=== PATIENT | female | born 2000 | race Caucasian/White ===

== ENCOUNTER 2023-01-24 18:02 | Emergency (ER) | payer BC ==
[~2023-01-24] VITALS: Ht 165.1 cm; Wt 104.3 kg
[2023-01-24 18:02] VITALS: BP_SYST 123; PULSE 119; RESP 19; TEMP 98; O2SAT 97
[2023-01-24] MEDS ORDERED: ALBUTEROL SULFATE 0.083% 2.5 MG/3 ML VIAL.NEB INH ONE ×3 (18:11→18:30)
[2023-01-24] MEDS ORDERED: IPRATROPIUM BROM 0.5 MG/2.5 ML VIAL.NEB (ATROVENT) INH ONE (18:30)
[2023-01-24] MEDS ORDERED: predniSONE 20 MG TABLET PO ONE (18:30)
[2023-01-24 19:21] LABS: COVID19 ANTIGEN SOFIA FIA NEGATIVE (NEGATIVE)
[2023-01-24 19:23] LABS: INFLUENZA TYPE A Negative (NEGATIVE); INFLUENZA TYPE B NEGATIVE (NEGATIVE)
[2023-01-24] MEDS ORDERED: PRED20TA PO (19:28)
[2023-01-24 19:39] VITALS: BP_SYST 114; PULSE 102; RESP 20; TEMP 98.1; O2SAT 96
== END 2023-01-24 19:39 | disposition home or self-care (01) ==
LOC: SED 18:02
DX: J45.901 Unspecified asthma with (acute) exacerbation (principal); R06.02 Shortness of breath; R05.9 Cough, unspecified; Z91.048 Other nonmedicinal substance allergy status; Z91.010 Allergy to peanuts; Z79.899 Other long term (current) drug therapy; Z20.822 Contact with and (suspected) exposure to COVID-19
CPT/HCPCS: 99284; 71045; 87426; 36415; 94640; 87804 ×2; J7512